=== PATIENT | male | born 1945 | race Caucasian/White ===

== ENCOUNTER → 2021-11-30 | Outpatient (CLI) | payer OTHER | LOC: HEART 5 11-19 11:30 | DX: I48.91 Unspecified atrial fibrillation (principal); I25.10 Atherosclerotic heart disease of native coronary artery without angina pectoris; I07.1 Rheumatic tricuspid insufficiency; I27.20 Pulmonary hypertension, unspecified | CPT/HCPCS: 93306 ==

== ENCOUNTER 2021-12-29 04:54 | Emergency (ER) | payer OTHER | END 2021-12-29 04:58 | disposition E | LOC: ER1 04:54 | PROVIDERS: Family Medicine | DX: I46.9 Cardiac arrest, cause unspecified (principal); E87.5 Hyperkalemia; E87.2 Acidosis | CPT/HCPCS: 80053; 84484; 92950; 99285 ==